=== PATIENT | male | born 1980 | race Caucasian/White ===

== ENCOUNTER 2019-09-19 08:47 | Emergency (ER) | payer SELFPAY ==
[2019-09-19 09:57] VITALS: BP 131/86
--- NOTE | 2019-09-19 10:17 | ER Document Report ---
Entered by TRICIA DREW SCRIBE 09/19/19 0938 Acting as scribe for:DANIEL BURT MD ED Extremity Problem, Lower - General Chief Complaint: Leg Injury Stated Complaint: RIGHT LEG PAIN Time Seen by Provider: 09/19/19 09:36 Mode of Arrival: Ambulatory Information source: Patient Notes: This 38-year-old male patient presents to the emergency department today with c omplaints of right valles pain. Patient states that two days ago he was working at home and was hammering a sign, he states that he missed the sign with the hammer and he slammed it into his right valles. Patient states he has pain with ambulation and with dorsiflexion of the right foot since. Patient has tried ibuprofen with minimal relief. - Related Data Allergies/Adverse Reactions: erythromycin base Allergy (Verified 09/19/19 09:50) tramadol Allergy (Verified 09/19/19 09:50) Past Medical History - General Information source: Patient - Social History Smoking Status: Never Smoker Cigarette use (# per day): No Frequency of alcohol use: None Drug Abuse: None Lives with: Family Family History: Reviewed & Not Pertinent - Medical History Medical History: Negative Surgical Hx: Negative Review of Systems - Review of Systems Constitutional: No symptoms reported EENT: No symptoms reported Cardiovascular: No symptoms reported Respiratory: No symptoms reported Gastrointestinal: No symptoms reported Genitourinary: No symptoms reported Male Genitourinary: No symptoms reported Musculoskeletal: See HPI, Joint pain, Muscle pain Skin: No symptoms reported Hematologic/Lymphatic: No symptoms reported Neurological/Psychological: No symptoms reported -: Yes All other systems reviewed and negative Physical Exam - Vital signs Vitals: Temp Pulse Resp BP Pulse Ox 98.7 F 64 16 127/75 H 97 09/19/19 08:51 09/19/19 08:51 09/19/19 08:51 09/19/19 08:51 09/19/19 08:51 - Notes Notes: Physical Exam: General: Alert, appears well. HEENT: Normocephalic. Atraumatic. PERRL. Extraocular movements intact. Oropharynx clear. Neck: Supple. Non-tender. Respiratory: No respiratory distress. Clear and equal breath sounds bilaterally. Cardiovascular: Regular rate and rhythm. Abdominal: Normal Inspection. Non-tender. No distension. Normal Bowel Sounds. Back: No gross abnormalities. Extremities: Moves all four extremities. Upper extremities: Normal inspection. Normal ROM. Lower extremities: Over the proximal flat surface of the right tibia there is a superficial transverse laceration approximately 2 cm in length with surrounding swelling and exquisite tenderness on palpation. Palpation lateral to the anterior tibialis muscle causes exquisite pain. Pain is reproduced with dorsiflexion of the right foot. Neurological: Normal cognition. AAOx4. Normal speech. Psychological: Normal affect. Normal Mood. Skin: Warm. Dry. Normal color. Course - Vital Signs Vital signs: Temp Pulse Resp BP Pulse Ox 98.2 F 72 16 131/86 H 99 09/19/19 09:55 09/19/19 09:55 09/19/19 08:51 09/19/19 09:55 09/19/19 09:55 - Diagnostic Test Radiology reviewed: Image reviewed, Reports reviewed - Right tibia x-ray does not show osseous injury. Discharge - Discharge Clinical Impression: Contusion of right tibia Condition: Stable Disposition: HOME, SELF-CARE Additional Instructions: Contusion: Your injury has resulted in a contusion -- a crushing of the deep tissues. No injury to important structures was detected during the physician's exam. Contusions vary in the amount of pain they cause, and in the length of time required for healing. Typically, the area will become bruised, and will remain painful to touch for two or three weeks. However, most patients are back to working and playing within a few days. After the initial period of rest and cold-packs, your symptoms (together with the doctor's recommendations) will determine how rapidly you can get back to full activity. Usually this means "do what feels okay, but don't do things that hurt." If re-examination was recommended, it's important to follow up as instructed. Call the doctor or return any time if pain increases, if swelling becomes severe, if you develop numbness or weakness in an injured extremity, or if any other alarming symptoms occur. Keep the skin wound clean and dressed with bacitracin and a Band-Aid. Elevate your leg and limit walking as much as possible. Use ice packs on the contused area off and on throughout the day for the next 2 to 3 days. Use the crutches to get around your home when you have to get up. Take 2 Aleve every 12 hours. Supplement with Tylenol for pain control if needed. Follow-up with a local medical doctor if not improving. RETURN TO THE EMERGENCY ROOM IF ANY NEW OR WORSENING SYMPTOMS. I personally performed the services described in the documentation, reviewed and edited the documentation which was dictated to the scribe in my presence, and it accurately records my words and actions.
--- NOTE | 2019-09-19 10:17 | RADIOLOGY REPORT (SQ) ---
EXAM DESCRIPTION: TIBIA FIBULA RIGHT IMAGES COMPLETED DATE/TIME: 09/19/2019 10:09 am REASON FOR STUDY: Hit proximal tibia with a hammer COMPARISON: None. NUMBER OF VIEWS: Two views. TECHNIQUE: Two radiographic images acquired of the right tibia and fibula to include the knee and an kle in at least one projection. LIMITATIONS: None. FINDINGS: MINERALIZATION: Normal. BONES: No acute fracture or dislocation. No osseous lesion or periosteal reaction. SOFT TISSUES: No soft tissue swelling or radiopaque foreign body. OTHER: No other finding. IMPRESSION: No acute osseous abnormality of the right tibia and fibula. TECHNICAL DOCUMENTATION: JOB ID: [id number] 2010 [employer]- All Rights Reserved Reading location - IP/workstation name: [email or web address]
[2019-09-19] MEDS ORDERED: HYDROCODONE/ACETAMINOPHEN 5-325 MG (6 TAB/ER DISP) PO PRN (10:40)
== END 2019-09-19 11:01 | disposition home or self-care (01) ==
LOC: ER 08:47
DX: S80.11XA Contusion of right lower leg, initial encounter (principal); M79.604 Pain in right leg; M79.89 Other specified soft tissue disorders; W22.8XXA Striking against or struck by other objects, initial encounter; Y92.009 Unspecified place in unspecified non-institutional (private) residence as the place of occurrence of the external cause; Z88.1 Allergy status to other antibiotic agents; Z88.8 Allergy status to other drugs, medicaments and biological substances
CPT/HCPCS: 99283

== ENCOUNTER 2019-10-05 22:04 | Emergency (ER) | payer BC ==
[2019-10-05 22:10] VITALS: BP 142/92
--- NOTE | 2019-10-05 23:18 | ER Document Report ---
ED Medical Screen (RME) - General Chief Complaint: Dog Bite Stated Complaint: DOG BITE ON FACE/HEAD LACERATION Time Seen by Provider: 10/05/19 23:11 Mode of Arrival: Ambulatory Information source: Patient Notes: HPI; 38-year-old male presents to the emergency room with dog bites to his forehead, between his eyes, and his nose by his pit bull that happened approximately 1 hour prior to arrival. States he did have bleeding out of his nose after it happened. States he went to the dog out of his bed dog became startled and bit him in his face. Dog's vaccines are up-to-date. Patient's tet anus is up-to-date. States he took a half of 1 of his 's hydrocodone without relief. Bleeding is controlled. Did not notify animal control. PE: Alert and oriented x3. Mild distress noted. 2 cm laceration to the forehead with bleeding controlled. There are scattered abrasions noted between the eyes of his forehead. As well as the bridge of the nose. Do not see any active bleeding from the nose. All bleeding is controlled .PERRLA, EOMI. Lungs: Clear to auscultation without rales, rhonchi, wheezes. Heart: Regular rate and rhythm without murmurs, rubs, gallops. Unable to fully assess all wounds in triage I have greeted and performed a rapid initial assessment of this patient. A comprehensive ED assessment and evaluation of the patient, analysis of test results and completion of the medical decision making process will be conducted by additional ED providers. I have specifically instructed the patient or family members with the patient to immediately return to any nursing staff should anything change in the patient's condition or with their chief complaint. TRAVEL OUTSIDE OF THE [place] IN LAST 30 DAYS: No - Related Data Allergies/Adverse Reactions: erythromycin base Allergy (Verified 09/19/19 09:50) tramadol Allergy (Verified 09/19/19 09:50) Physical Exam - Vital signs Vitals: Temp Pulse Resp BP Pulse Ox 98.5 F 73 16 142/92 H 98 10/05/19 22:09 10/05/19 22:09 10/05/19 22:09 10/05/19 22:09 10/05/19 22:09 Course - Vital Signs Vital signs: Temp Pulse Resp BP Pulse Ox 98.5 F 73 16 142/92 H 98 10/05/19 22:09 10/05/19 22:09 10/05/19 22:09 10/05/19 22:09 10/05/19 22:09
== END 2019-10-06 01:34 | disposition left against medical advice (07) ==
LOC: ER 22:04
DX: Z53.20 Procedure and treatment not carried out because of patient's decision for unspecified reasons (principal); S01.85XA Open bite of other part of head, initial encounter; W54.0XXA Bitten by dog, initial encounter
CPT/HCPCS: 99281

== ENCOUNTER → 2019-11-18 | Outpatient (CLI) | payer BC ==
--- NOTE | 2019-11-18 12:54 | RADIOLOGY REPORT (SQ) ---
EXAM DESCRIPTION: T SPINE AP/LAT IMAGES COMPLETED DATE/TIME: 11/18/2019 11:32 am REASON FOR STUDY: NECK PAIN, CHRONIC BILATERAL THORACIC BACK PAIN COMPARISON: None. NUMBER OF VIEWS: Two view thoracic spine LIMITATIONS: None. FINDINGS: No malalignment. Disc space narrowing at multiple levels without bulky osteophytes. No f racture or bone lesion. Low lung volumes with intact soft tissues otherwise. OTHER: No other significant finding. IMPRESSION: Thoracic spondylosis. No malalignment or fracture detected. TECHNICAL DOCUMENTATION: JOB ID: [id number] Reading location - IP/workstation name: [email or web address]
--- NOTE | 2019-11-18 12:54 | RADIOLOGY REPORT (SQ) ---
EXAM DESCRIPTION: C SP 4 OR 5 VIEWS IMAGES COMPLETED DATE/TIME: 11/18/2019 11:32 am REASON FOR STUDY: NECK PAIN, CHRONIC BILATERAL THORACIC BACK PAIN M54.6 PAIN IN THORACIC SPINE M54. 2 CERVICALGIA COMPARISON: None. NUMBER OF VIEWS: Five views. TECHNIQUE: AP, lateral, obliques and odontoid radiographic images acquired of the cervical spine. LIMITATIONS: None. FINDINGS: MINERALIZATION: Normal. ALIGNMENT: Anatomic. VERTEBRAE: Vertebral bodies of normal height. DISCS: No significant osteophytes or sclerosis. Disc height maintained. FORAMINA: No osteophytes or foraminal narrowing. LATERAL AND POSTERIOR ELEMENTS: Facets, lateral masses and spinous processes without significant find ings. HARDWARE: None in the spine. SOFT TISSUES: No masses or calcifications. Lung apices clear. OTHER: No other significant finding. IMPRESSION: NO SIGNIFICANT RADIOGRAPHIC FINDING IN THE CERVICAL SPINE. TECHNICAL DOCUMENTATION: JOB ID: [id number] 2010 [employer]- All Rights Reserved Reading location - IP/workstation name: [email or web address]
== END ==
LOC: OD 11:02
PROVIDERS: ATTEND Physician Assistant
DX: M54.6 Pain in thoracic spine (principal); M54.2 Cervicalgia
CPT/HCPCS: 72050; 72070

== ENCOUNTER 2020-04-18 17:24 | Emergency (ER) | payer OTHER, BC ==
[2020-04-18] MEDS ORDERED: HYDROCODONE/ACETAMINOPHEN 5-325 MG TABLET PO ONE (18:55)
--- NOTE | 2020-04-18 18:57 | ER Document Report ---
ED Medical Screen (RME) - General Chief Complaint: Ankle Pain Stated Complaint: ANKLE INJURY Primary Care Provider: NATASHA FLORES PA-C [Primary Care Provider] - Follow up as needed TRAVEL OUTSIDE OF THE [place] IN LAST 30 DAYS: No - HPI Notes: 04/18/20 18:56 Rapid Medical Exam HPI:-year-old male presents to the ER complaining of right lateral ankle pain after a blunt force injury. At work when a couch struck him on the lateral ankle. Patient is unable to bear weight since injury. He has some mild pain to the proximal medial tibial area as well. No treatments tried prior to arrival Physical Exam: GENERAL: Well-appearing, well-nourished and in no acute distress. HEAD: Atraumatic, normocephalic. ENT: Moist mucous membranes. RESP: Respirations even and unlabored CV- Regular rate. NEURO: No focal neurological deficits. Moves all extremities spontaneously and on command. My involvement in this patients care was limited to a rapid initial assessment. A comprehensive ED assessment and evaluation of the patient, analysis of test results, treatment, and completion of the medical decision making process will be performed by other ER providers. - Related Data Allergies/Adverse Reactions: erythromycin base Allergy (Verified 04/18/20 18:49) tramadol Allergy (Verified 04/18/20 18:49) Past Medical History - Social History Chew tobacco use (# tins/day): No Frequency of alcohol use: None Drug Abuse: None Past Surgical History: Reports: Hx Orthopedic Surgery - BICEP RELOCATION. Physical Exam - Vital signs Vitals: Temp Pulse Resp BP Pulse Ox 98.4 F 86 18 140/82 H 100 04/18/20 17:31 04/18/20 17:31 04/18/20 17:31 04/18/20 17:31 04/18/20 17:31 Course - Vital Signs Vital signs: Temp Pulse Resp BP Pulse Ox 98.4 F 86 18 140/82 H 100 04/18/20 17:31 04/18/20 17:31 04/18/20 17:31 04/18/20 17:31 04/18/20 17:31 Doctor's Discharge - Discharge Referrals: NATASHA FLORES PA-C [Primary Care Provider] - Follow up as needed
--- NOTE | 2020-04-18 19:13 | ER Document Report ---
ED General - General Chief Complaint: Ankle Pain Stated Complaint: ANKLE INJURY Primary Care Provider: NATASHA FLORES PA-C [Primary Care Provider] - Follow up as needed TRAVEL OUTSIDE OF THE [place] IN LAST 30 DAYS: No - HPI Notes: Chief Complaint: right ankle pain Historian: History obtained from patient HPI: This is a 39 year-old male presents to the ER complaining of right lateral ankle pain after a blunt force injury. At work when a couch struck him on the lateral ankle. Patient is unable to bear weight since injury. He has some mild pain to the proximal medial tibial area as well. No treatments tried prior to arrival ROS: Constitutional: no fevers. HEENT: no ARRIAGA, sore throat, or vision changes. CV: no chest pain or palpitations. Resp: no cough or SOB. GI: no abdominal pain, or n/v/d. : no dysuria, hematuria, or incont. MSK: right ankle pain Skin: no rashes or itching. Neuro: no seizures, weakness, numbness, or confusion. Hematological: no ecchymosis or easy bleeding. Endocrine: no polyuria/polydipsia, no heat/cold intolerance. Psych: no SI/HI, AH/VH or memory loss. PMHx: Reviewed and agree as charted by RN. PSHx: Reviewed and agree as charted by RN. SOCHx: Reviewed and agree as charted by RN. FHX: No significant familial comorbid conditions directly related to patient complaint Current Medications: Reviewed and agree with the patient medications as charted by the RN. Allergies: Reviewed and agree with the listed allergies as charted by the RN Physical Exam: Vitals: Reviewed in chart as documented by RN. General: Alert and in NAD. Head: Normocephalic; atraumatic Eyes: PERRLA, Conjunctivae clear sclerae non-icteric bilat ENT: no soft palate swelling or uvular deviation Neck: trachea midline, no unilateral swelling/tenderness/lymphadenopathy CV: RRR, no M/R/G; symmetric distal pulses Resp: respirations even and unlabored, CTA bilat. GI: abd soft and nondistended. NTTP. normal BS. no masses/HSM. no CVAT bilat MSK: moderate swelling to lateral ankle, small abrasion, diffuse tendereness. limited ankle rom due to pain. no foot swelling/tenderness pedal pulse 2+ cap refill < 3 sec sensory intact distally from of knee and hip. mild proximal tibia tenderness, no deformity. Skin: warm, moist, good turgor. no rash/lesions Neuro: Alert and oriented X 4. following CN 2-12 intact. no unilateral weakness/numbness Psych: No SI/HI or AH/VH. Medical Decision-making/Differential Diagnosis: Consider various etiologies including but not limited to skin/soft tissue structure injury, MSK injury, strain/sprain, fracture, dislocation, bursitis, tendonitis, contusion, ect Plan- xr ankle and tib/fib. pain meds. This course of action was discussed with the patient and/or family. They were amenable to this, verbalized understanding, and were without further questions. - Related Data Allergies/Adverse Reactions: erythromycin base Allergy (Verified 04/18/20 18:49) tramadol Allergy (Verified 04/18/20 18:49) Past Medical History - Social History Smoking Status: Unknown if Ever Smoked Chew tobacco use (# tins/day): No Frequency of alcohol use: None Drug Abuse: None Family History: Reviewed & Not Pertinent Patient has homicidal ideation: No Past Surgical History: Reports: Hx Orthopedic Surgery - BICEP RELOCATION. Physical Exam - Vital signs Vitals: Temp Pulse Resp BP Pulse Ox 98.4 F 86 18 140/82 H 100 04/18/20 17:31 04/18/20 17:31 04/18/20 17:31 04/18/20 17:31 04/18/20 17:31 Course - Re-evaluation Re-evalutation: 04/18/20 20:00 imaging negative. will treat as ankle sprain/contusion. RICE, nsaids/tylenol. pcp f/u in 2-3 days. wbat. juliann wrap and crutches given, return factors discussed. - Vital Signs Vital signs: Temp Pulse Resp BP Pulse Ox 98.4 F 86 18 140/82 H 100 04/18/20 17:31 04/18/20 17:31 04/18/20 17:31 04/18/20 17:31 04/18/20 17:31 - Laboratory Results Critical Laboratory Results Reviewed: No Critical Results - Radiology Results Critical Radiology Results Reviewed: No Critical Results Discharge - Discharge Clinical Impression: Right ankle injury Qualifiers: Encounter type: initial encounter Qualified Code(s): S99.911A - Unspecified injury of right ankle, initial encounter Condition: Stable Disposition: HOME, SELF-CARE Instructions: Sprained Ankle ([facility]) Additional Instructions: Follow all printed instructions. rest, ice, and elevate ankle. weight bearing as tolerated. follow up with orthopedics if unable to bear weight after a week. call to schedule an appointment. Follow up with your doctor in 2-3 days for re-check. Return to the ER if your condition worsens. Forms: Return to Work Referrals: NATASHA FLORES PA-C [Primary Care Provider] - Follow up as needed CORBIN EDUARDO DO [ACTIVE STAFF] - Follow up as needed
--- NOTE | 2020-04-18 19:26 | RADIOLOGY REPORT (SQ) ---
EXAM DESCRIPTION: TIBIA FIBULA RIGHT; ANKLE RIGHT COMPLETE IMAGES COMPLETED DATE/TIME: 04/18/2020 6:10 pm REASON FOR STUDY: proximal tib pain after ankle injury; blunt force to lateral ankle COMPARISON: None. NUMBER OF VIEWS: Five views TECHNIQUE: AP, lateral, and oblique without weight bearing radiographic images acquired of the right ankle. AP and lateral views of the right lower leg. LIMITATIONS: None. FINDINGS: MINERALIZATION: Normal. BONES: No acute fracture or dislocation. No worrisome bone lesions. Normal alignment. No significant arthritic changes. Small plantar calcaneal spur. JOINTS AND SOFT TISSUES: No swelling. No joint effusion. No calcifications. No foreign bodies. OTHER: No other significant finding. IMPRESSION: No acute fracture or dislocation of the right ankle or lower leg. TECHNICAL DOCUMENTATION: JOB ID: [id number] 2010 [employer]- All Rights Reserved Reading location - IP/workstation name: [email or web address]
--- NOTE | 2020-04-18 19:26 | RADIOLOGY REPORT (SQ) ---
EXAM DESCRIPTION: TIBIA FIBULA RIGHT; ANKLE RIGHT COMPLETE IMAGES COMPLETED DATE/TIME: 04/18/2020 6:10 pm REASON FOR STUDY: proximal tib pain after ankle injury; blunt force to lateral ankle COMPARISON: None. NUMBER OF VIEWS: Five views TECHNIQUE: AP, lateral, and oblique without weight bearing radiographic images acquired of the right ankle. AP and lateral views of the right lower leg. LIMITATIONS: None. FINDINGS: MINERALIZATION: Normal. BONES: No acute fracture or dislocation. No worrisome bone lesions. Normal alignment. No significant arthritic changes. Small plantar calcaneal spur. JOINTS AND SOFT TISSUES: No swelling. No joint effusion. No calcifications. No foreign bodies. OTHER: No other significant finding. IMPRESSION: No acute fracture or dislocation of the right ankle or lower leg. TECHNICAL DOCUMENTATION: JOB ID: [id number] 2010 [employer]- All Rights Reserved Reading location - IP/workstation name: [email or web address]
[2020-04-18 20:17] VITALS: BP 130/91
== END 2020-04-18 20:18 | disposition home or self-care (01) ==
LOC: ER 17:24
DX: S99.911A Unspecified injury of right ankle, initial encounter (principal); M25.571 Pain in right ankle and joints of right foot; W22.03XA Walked into furniture, initial encounter; Z88.1 Allergy status to other antibiotic agents; Z88.8 Allergy status to other drugs, medicaments and biological substances
CPT/HCPCS: 99283